=== PATIENT | female | born 1985 | race Two or more races ===

== ENCOUNTER 2020-11-01 20:43 | Inpatient (IN) ==
[2020-11-01] MEDS ORDERED: OXYTOCIN 30 UNITS/500 ML BAG IV PRN (20:51)
[2020-11-01] MEDS ORDERED: miSOPROStoL 50 MCG TAB PO ONE (20:51)
[2020-11-01 21:06] LABS: Hematocrit (blood only) 38.6 % (37-47); Hemoglobin 13.3 g/dL (12.0-16.0); Mean Corpuscular Hemoglobin 29.6 pg (25-34); Mean Corpuscular Hgb Conc 34.5 g/dL (32-36); Mean Corpuscular Volume 85.8 fL (80-100); Mean Platelet Volume 10.4 fL (7.4-10.4); Platelet Count 251 K/uL (130-400); RDW Coefficient of Variation 13.6 % (11.5-14.5); White Blood Count 8.44 K/uL (4.8-10.8)
[2020-11-01] MEDS ORDERED: DINOPROSTONE 10 MG INSERT PV ONE (21:48)
[2020-11-01] MEDS ORDERED: BUTORPHANOL TARTRATE 1 MG/ML VIAL IV PRN (21:50)
[2020-11-02] MEDS: valACYclovir HCL 500 MG TABLET PO SCH ×2 (09:00→21:23)
[2020-11-02] MEDS: OXYTOCIN 30 UNITS/500 ML BAG IV PRN (12:40)
[2020-11-02] MEDS: LACTATED RINGER'S 1,000 ML IV PRN ×2 (12:40→20:21)
[2020-11-02] MEDS ORDERED: ePHEDrine sulfate 50 MG/ML AMP ONE (22:07)
[2020-11-02] MEDS ORDERED: SODIUM CHLORIDE 0.9% INJ 10 ML VIAL ONE (22:07)
[2020-11-02] MEDS ORDERED: fentaNYL citrate 100 MCG/2 ML VIAL ONE (22:07)
[2020-11-02] MEDS ORDERED: BUPIVACAINE 0.25% 30 ML VIAL ONE (22:07)
[2020-11-02] MEDS ORDERED: fentaNYL 2MCG/ML ROPIVACAINE 1.25MG/ML 100 ML BAG EPI ONE (22:08)
--- NOTE | 2020-11-02 23:12 | Anesthesiology Consultation ---
Date of Service November 02, 2020 Assessment & Plan Chart Review Chart Review: Acceptable Risk for Labor Epidural Consults Requested none History Height/Weight Height: 4 ft 11 in Weight: 48.534 kg Allergies Allergy/AdvReac Type Severity Reaction Status Date / Time No Known Allergies Allergy Verified 11/01/20 20:57 Medications Home Medications Medication Instructions Recorded Confirmed Last Taken dinmkhic-vlo-Hf-FA 1 mg 1 tab PO DAILY 11/01/20 11/01/20 11/01/20 tablet 0800 valacyclovir 500 mg tablet 500 mg PO BID 11/01/20 11/01/20 11/01/20 (Valtrex) 0800 Active Medications Generic Name Dose Route Start Last Admin Trade Name Freq PRN Reason Stop Dose Admin Lactated Ringer's 1,000 mls @ 125 mls/hr 11/01/20 20:51 11/02/20 20:21 Lr IV 11/03/20 20:50 125 mls/hr .Q8H PRN Administration L&D Protocol Protocol Oxytocin 30 units in 500 mls @ 24 mls/hr 11/02/20 12:01 11/02/20 21:15 Pitocin IV 11/04/20 12:00 1.44 units/hr .[id number] PRN 24 mls/hr Labor Induction/Augmentation Titration Protocol 1.44 UNITS/HR Valacyclovir HCl 500 mg 11/02/20 09:00 11/02/20 21:23 Valacyclovir Hcl 500 Mg Tablet PO 11/12/20 08:59 500 mg BID DEBBIE Administration Past Medical History Medical History (Updated 11/02/20 @ 00:14 by Coleen Renee RN) Asthma Asthma GERD (gastroesophageal reflux disease) Hx of herpes genitalis Skin abnormalities removal of scar tissue Social History Smoking Status: Never smoker Hx Alcohol Use: No Physical Exam Vital Signs Last Vital Signs Temp 36.8 C 11/02/20 22:03 Pulse 97 H 11/02/20 23:08 Resp 18 11/02/20 22:03 BP 98/60 L 11/02/20 23:08 Pulse Ox 98 11/02/20 23:05 Testing Laboratory Results 11/01/20 21:00
[2020-11-02] MEDS ORDERED: diphenhydrAMINE 50 MG/ML VIAL IV PRN (23:13)
[2020-11-02] MEDS ORDERED: NALOXONE HCL 1 MG in SODIUM CHLORIDE 0.9% 1000ML 1,000 ML IV PRN (23:13)
[2020-11-02] MEDS ORDERED: NALBUPHINE HCL INJ 10 MG/ML AMP IV PRN (23:13)
[2020-11-02] MEDS ORDERED: ePHEDrine sulfate 50 MG/ML AMP IV PRN (23:13)
[2020-11-02] MEDS ORDERED: NALOXONE HCL 0.4 MG/1 ML VIAL/CARP IV PRN (23:13)
[2020-11-03] MEDS: LACTATED RINGER'S 1,000 ML IV PRN (03:35)
[2020-11-03] MEDS ORDERED: NURSING L&D Epidural Breakthrough Pain Update ONE (03:40)
[2020-11-03] MEDS ORDERED: LIDOCAINE 2% MPF LOCAL 5 ML VIAL INFIL ONE (03:56)
[2020-11-03] MEDS ORDERED: fentaNYL citrate 100 MCG/2 ML VIAL ONE (03:56)
--- NOTE | 2020-11-03 04:05 | Communication Note ---
Date of Service: November 03, 2020 Called for pt c/o increased pain with contractions. Bolused epidural with 2% lidocaine 5cc plus 100mcg fentanyl. VSS.
[2020-11-03] MEDS: fentaNYL 2MCG/ML ROPIVACAINE 1.25MG/ML 100 ML BAG EPI PRN ×2 (05:35→11:36)
[2020-11-03] MEDS: OXYTOCIN 30 UNITS/500 ML BAG IV PRN (12:03)
[2020-11-03] MEDS ORDERED: SUPERCREAM 0.870% 15 GM JAR EXT PRN (14:53)
[2020-11-03] MEDS ORDERED: miSOPROStoL 200 MCG TAB PR ONE (14:53)
[2020-11-03] MEDS ORDERED: DIPHTHERIA/TETANUS/PERTUSSIS 0.5 ML SYR/VIAL IM ONE (14:53)
[2020-11-03] MEDS ORDERED: bisacodyL 10 MG SUPP PR PRN (14:53)
[2020-11-03] MEDS ORDERED: OXYTOCIN 10 UNITS/ML VIAL IM ONE (14:53)
[2020-11-03] MEDS ORDERED: oxyCODONE/ACETAMINOPHEN 5mg/325mg TAB PO PRN (14:53)
[2020-11-03] MEDS ORDERED: OXYTOCIN 30 UNITS/500 ML BAG IV PRN (14:53)
[2020-11-03] MEDS ORDERED: BENZOCAINE 20% AER SPR 82.5 GM CAN EXT PRN (14:53)
[2020-11-03] MEDS ORDERED: HYDROCORTISONE ACETATE 25 MG SUPP PR PRN (14:53)
--- NOTE | 2020-11-03 14:56 | Anesthesia Procedure Note ---
Date of Service November 03, 2020 Anesthesia Post Epidural Note Vital Signs Vital Signs: Temp Pulse Resp BP Pulse Ox 36.7 C 127 H 18 119/63 83 L 11/03/20 12:01 11/03/20 14:32 11/03/20 12:01 11/03/20 14:32 11/03/20 10:04 Notes Mental Status: alert / awake / arousable and participated in evaluation Patient Amnestic to Procedure: Yes Nausea / Vomiting: adequately controlled Pain: adequately controlled Airway Patency, RR, SpO2: stable & adequate BP & HR: stable & adequate Hydration State: stable & adequate Neuraxial Anesthesia: was administered and sensory block is resolving Anesthetic Complications: no major complications apparent and Pt Satisfied with anesthetic care
[2020-11-03] MEDS: valACYclovir HCL 500 MG TABLET PO SCH ×2 (17:44→20:10)
[2020-11-03] MEDS: IBUPROFEN 600 MG TAB PO PRN (17:56)
[2020-11-03] MEDS: DOCUSATE SODIUM 100 MG CAP PO SCH (20:10)
[2020-11-03] MEDS: ACETAMINOPHEN 325 MG TAB PO PRN (20:11)
[2020-11-04] MEDS: IBUPROFEN 600 MG TAB PO PRN ×5 (00:14→22:07)
[2020-11-04 06:47] LABS: Hematocrit (blood only) 34.6 % (37-47); Hemoglobin 11.7 g/dL (12.0-16.0); Mean Corpuscular Hemoglobin 29.9 pg (25-34); Mean Corpuscular Hgb Conc 33.8 g/dL (32-36); Mean Corpuscular Volume 88.5 fL (80-100); Mean Platelet Volume 10.6 fL (7.4-10.4); Platelet Count 186 K/uL (130-400); RDW Coefficient of Variation 14.2 % (11.5-14.5); RDW Standard Deviation 45.3 fL (36.4-46.3); Red Blood Count 3.91 M/uL (4.2-5.4)
[2020-11-04] MEDS: ACETAMINOPHEN W/CODEINE #3 1 TAB PO PRN ×3 (08:08→19:21)
[2020-11-04] MEDS: DOCUSATE SODIUM 100 MG CAP PO SCH ×2 (08:08→22:08)
[2020-11-04] MEDS: PRENATAL VITAMIN 1 TAB PO SCH (08:08)
[2020-11-04] MEDS: valACYclovir HCL 500 MG TABLET PO SCH ×2 (08:10→22:08)
--- NOTE | 2020-11-04 09:27 | Delivery Summary ---
The patient is a primipara. She was brought in for induction secondary to asymmetrical intrauterine growth retardation. Estimated pre-delivery weight was 5 pounds 5 ounces and her abdominal circumfere nce lagged 3 weeks behind her head circumference. Also, the prior ultrasound done a month before karl wed very little abdominal growth during the ensuing time. She was brought in late in the day at 37 we eks 6 days, was placed on the monitor, was having spontaneous contractions, so we went to Cervidil ta pe; 12 hours later, the Cervidil tape was removed, 2 hours after that she was started on IV Pitocin. She continued on IV Pitocin. We continued to up the dose, at about 4 cm, the membranes are ruptured surgically. Fluid was clear. Soon after that, she received epidural anesthesia for pain control. We continued to increase the Pitocin. She got a regular labor pattern. She became fully dilated fir st with an anterior lip. Then, we allowed the lip to clear, then she started to push. She pushed fo r about 3-4 hours; however, during a large part at this time, she was only antoni every 4-5 karen josselin and she had slow, but steady progress with excellent heart rate with good variability throu ghout the entire pushing phase and she crowned a live female via direct occiput anterior posit ion over an intact perineum. Infant was suctioned through the mouth and the nose. Shoulders were de livered without difficulty. Cord was allowed to clamp for a minute before clamping and then it was c ut by the father. Cord blood was taken. The placenta was removed intact. The IV had infiltrated, s o we gave her a shot of IM Pitocin 10 units. Inspection of the perineum revealed a first-degree lacer ation out and to beyond the hymenal ring. This was repaired anatomically. The vaginal mucosa was ap proximated with a 2-0 Vicryl out and to beyond the hymenal ring. There was a deep suture of 2-0 Vicr yl placed in a horizontal fashion that approximated the rectovaginal septum. Then, a separate deep s uture that approximated the anterior capsule of the rectal sphincter bolstered it and a deep suture t o approximate the bulbocavernosus muscle and then a running subcuticular suture was used to approxima te the perineal skin edges. Following this, the vaginal examination revealed no hematoma formation. Sponges were removed, 800 mcg of Cytotec was placed vaginally with 4 tablets and rectal examination revealed no stitches through the rectal mucosa. Estimated blood loss was only 100 mL. Placenta was n oted to be small. Apgars were deferred to the nurses. The patient tolerated the delivery well. Job ID: [id number]
--- NOTE | 2020-11-04 11:45 | Obstetrical Progress Note ---
Date of Service November 04, 2020 Assessment & Plan Admission and Anticipated Discharge Date Admission Date: November 01, 2020 Subjective abdomen soft and non tender no calf tenderness ambulating well vaginal bleeding scant hgb 11.7 Results & Data [facility]) Vital Signs (Past 12 Hours) Vital Signs Temp Pulse Resp BP Pulse Ox 11/04/20 07:55 36.9 C 65 16 101/66 99 11/04/20 03:35 37.1 C 81 16 117/77 99
[2020-11-04] MEDS ORDERED: bisacodyL 5 MG TABEC PO SCH (20:00)
[2020-11-05] MEDS: ACETAMINOPHEN 325 MG TAB PO PRN (01:31)
[2020-11-05] MEDS: IBUPROFEN 600 MG TAB PO PRN (06:14)
[2020-11-05 07:00] LABS: Hematocrit (blood only) 37.5 % (37-47); Hemoglobin 12.8 g/dL (12.0-16.0)
[2020-11-05] MEDS: DOCUSATE SODIUM 100 MG CAP PO SCH (08:29)
[2020-11-05] MEDS: PRENATAL VITAMIN 1 TAB PO SCH (08:29)
--- NOTE | 2020-11-05 09:26 | Obstetrical Progress Note ---
Date of Service November 05, 2020 Assessment & Plan Admission and Anticipated Discharge Date Admission Date: November 01, 2020 Subjective abdomen soft and non tender no calf tenderness ambulating well vaginal bleeding scant hgb 12.8 patient requests discharge Results & Data ([facility]) Vital Signs (Past 12 Hours) Vital Signs Temp Pulse Resp BP 11/05/20 01:15 36.5 C 76 18 124/78
== END 2020-11-05 14:05 | disposition home or self-care (01) | DRG 807 ==
LOC: 4S1 20:43 → 4S2 11-03 18:55